=== PATIENT | male | born 1950 | race Caucasian/White ===

== ENCOUNTER 2018-03-11 09:42 | Emergency (ER) | payer MEDICARE, OTHER ==
[2018-03-11 10:54] LABS: KETONE, URINE AUTO RFX NEGATIVE (NEGATIVE); LEUKOCYTE ESTERASE UR AUTO RFX NEGATIVE (NEGATIVE); MUCUS, URINE RFX SMALL (NEGATIVE); NITRITE, URINE AUTO RFX NEGATIVE (NEGATIVE); RBC, URINE AUTO RFX 0 /HPF (0-3); SPECIFIC GRAVITY UR AUTO RFX 1.003 (1.002-1.035); SQUAM EPITHELIAL CELL UR AURFX 0 /HPF (0-6); WBC, URINE AUTO RFX 0 /HPF (0-3)
== END 2018-03-11 11:35 | disposition home or self-care (01) ==
LOC: M ED 09:42
DX: K52.9 Noninfective gastroenteritis and colitis, unspecified (principal); K65.4 Sclerosing mesenteritis
CPT/HCPCS: 74176

== ENCOUNTER 2019-04-19 09:57 | Emergency (ER) | payer MEDICARE, OTHER ==
[~2019-04-19] VITALS: Ht 175.3 cm; Wt 70.9 kg
[2019-04-19 09:57] VITALS: BP 121/63
[~2019-04-19 09:57] MED LIST: PRED20TA PO
== END 2019-04-19 10:50 | disposition home or self-care (01) ==
LOC: M ED 09:57
DX: K40.90 Unilateral inguinal hernia, without obstruction or gangrene, not specified as recurrent (principal)